=== PATIENT | female | born 1950 | race Two or more races ===

== ENCOUNTER 2017-07-15 18:31 | Inpatient (IN) | payer OTHER ==
[~2017-07-15] VITALS: Ht 165.1 cm; Wt 106.1 kg
[2017-07-15 21:07] LABS: TROPONIN I 0.03 ng/mL (0.00-0.04)
[2017-07-15 21:08] LABS: BASOPHILS % 0.5 % (0.0-2.0); EOSINOPHILS % 4.5 % (0.0-5.0); HEMATOCRIT. 31.5 % (36.0-48.0); HEMOGLOBIN. 10.3 g/dL (12.0-16.0); LYMPHOCYTES % 25.7 % (20.0-50.0); MEAN CORPUSCULAR HEMOGLOBIN 30.1 pg (28.0-32.0); MEAN CORPUSCULAR VOLUME 92.3 fL (81.0-99.0); MEAN PLATELET VOLUME 7.7 fl (7.4-10.4); MONOCYTES % 6.6 % (2.0-8.0); NEUTROPHILS % 62.7 % (40.0-76.0); PLATELET 184 x1000/uL (130-400); RED BLOOD CELL COUNT 3.41 mill/uL (4.2-5.4); RED CELL DISTRIBUTION WIDTH 15.2 % (11.6-14.6)
[2017-07-15] MEDS ORDERED: ENOXAPARIN 40MG/0.4ML SYR SUBCUT SCH (21:45)
[2017-07-15] MEDS ORDERED: HYDROCODONE/ACETAMINOPHEN 5/325MG TABLET PO PRN (23:34)
[2017-07-15] MEDS ORDERED: ACETAMINOPHEN 325MG TABLET PO PRN (23:34)
[2017-07-15] MEDS ORDERED: CLONIDINE 0.1MG TABLET PO PRN (23:35)
[2017-07-16] VITALS (10 sets, daily range): BP systolic 95–114; BP diastolic 30–69
[2017-07-16] MEDS ORDERED: CHOL50003 PO (01:43)
[2017-07-16] MEDS ORDERED: ROSU10TA PO (01:43)
[2017-07-16] MEDS ORDERED: ZINC PO (01:44)
[2017-07-16] MEDS ORDERED: CENTRUM PO (01:44)
[2017-07-16] MEDS ORDERED: CINA30 PO (01:46)
[2017-07-16] MEDS ORDERED: SEVE800T8 PO (01:47)
[2017-07-16] MEDS ORDERED: CAPTOPRIL (01:48)
[2017-07-16] MEDS ORDERED: CAPTOPRIL PO ×2 (01:51→01:53)
[2017-07-16] MEDS ORDERED: ZOLPIDEM TARTRATE 5MG TABLET PO PRN (02:43)
[2017-07-16] MEDS ORDERED: DEXTROSE 50% WATER 50ML SYRINGE IV PRN (03:00)
[2017-07-16] MEDS: SODIUM CHLORIDE 0.45% 1,000 ML IV SCH (05:46)
[2017-07-16] MEDS: BLOOD SUGAR DIAGNOSTIC STRIP TEST SCH ×4 (06:25→20:27)
[2017-07-16 07:27] LABS: CHLORIDE 97 mEq/L (98-107); HDL CHOLESTEROL 48 mg/dL (40-59); LDL CHOLESTEROL 52 mg/dL (5-100); TROPONIN I 0.03 ng/mL (0.00-0.04)
[2017-07-16 07:30] LABS: BASOPHILS % 0.6 % (0.0-2.0); EOSINOPHILS % 5.3 % (0.0-5.0); HEMATOCRIT. 28.1 % (36.0-48.0); HEMOGLOBIN. 9.3 g/dL (12.0-16.0); LYMPHOCYTES % 29.5 % (20.0-50.0); MEAN CORPUSCULAR HEMOGLOBIN 30.7 pg (28.0-32.0); MEAN CORPUSCULAR VOLUME 92.9 fL (81.0-99.0); MONOCYTES % 7.4 % (2.0-8.0); NEUTROPHILS % 57.2 % (40.0-76.0); PLATELET 169 x1000/uL (130-400); RED BLOOD CELL COUNT 3.02 mill/uL (4.2-5.4); RED CELL DISTRIBUTION WIDTH 14.9 % (11.6-14.6)
[2017-07-16 07:35] LABS: CARBON DIOXIDE 32 mEq/L (21-32)
[2017-07-16] MEDS: INSULIN LISPRO 100 UNITS/ML SUBCUT SCH ×4 (08:11→20:28)
[2017-07-16] MEDS ORDERED: ENOXAPARIN 30MG/0.3ML SYR SUBCUT SCH (09:00)
[2017-07-16] MEDS ORDERED: PNEUMOCOCCAL 23-VAL P-SAC VAC 0.5 ML IM ONE (12:00)
[2017-07-16 15:50] LABS: PARTIAL THROMBOPLASTIN TIME 30.5 sec (23.4-31.0); PROTHROMBIN TIME 10.8 sec (9.4-11.6)
[2017-07-17] VITALS (7 sets, daily range): BP systolic 100–155; BP diastolic 45–99
[2017-07-17 05:16] LABS: BASOPHILS % 0.8 % (0.0-2.0); EOSINOPHILS % 5.2 % (0.0-5.0); HEMATOCRIT. 30.3 % (36.0-48.0); LYMPHOCYTES % 36.2 % (20.0-50.0); MEAN CORPUSCULAR HEMOGLOBIN 30.5 pg (28.0-32.0); MEAN CORPUSCULAR VOLUME 92.5 fL (81.0-99.0); MEAN PLATELET VOLUME 7.8 fl (7.4-10.4); MONOCYTES % 7.4 % (2.0-8.0); NEUTROPHILS % 50.4 % (40.0-76.0); PLATELET 179 x1000/uL (130-400); RED BLOOD CELL COUNT 3.27 mill/uL (4.2-5.4)
[2017-07-17] MEDS: SODIUM CHLORIDE 0.45% 1,000 ML IV SCH (06:25)
[2017-07-17] MEDS ORDERED: SODIUM BICARBONATE 4% (2.4MEQ) 5ML VIAL IV ONE (07:17)
[2017-07-17] MEDS ORDERED: LIDOCAINE HCL 1% 20ML VIAL (Pyxis) INJ ONE (07:17)
[2017-07-17] MEDS: BLOOD SUGAR DIAGNOSTIC STRIP TEST SCH ×4 (07:30→20:59)
[2017-07-17] MEDS ORDERED: CEFAZOLIN 1000MG PREMIX 50 ML IV ONE (07:46)
[2017-07-17] MEDS: INSULIN LISPRO 100 UNITS/ML SUBCUT SCH ×4 (08:00→21:00)
[2017-07-17] MEDS ORDERED: REGADENOSON 0.4 MG/5 ML IV NR (09:00)
[2017-07-17] MEDS ORDERED: REGADENOSON 0.4 MG/5 ML IV ONE (11:40)
[2017-07-17] MEDS: ENOXAPARIN 40MG/0.4ML SYR SUBCUT SCH (15:44)
[2017-07-17] MEDS: EPOETIN ALFA 10000UNITS/ML VIAL SUBCUT SCH (21:01)
[2017-07-18] VITALS: BP 95/56
[2017-07-18] MEDS: SODIUM CHLORIDE 0.45% 1,000 ML IV SCH (05:20)
[2017-07-18 06:32] LABS: BASOPHILS % 0.8 % (0.0-2.0); EOSINOPHILS % 5.9 % (0.0-5.0); HEMATOCRIT. 25.4 % (36.0-48.0); HEMOGLOBIN. 8.2 g/dL (12.0-16.0); MEAN CORPUSCULAR HEMOGLOBIN 30.2 pg (28.0-32.0); MEAN PLATELET VOLUME 8.1 fl (7.4-10.4); MONOCYTES % 8.9 % (2.0-8.0); NEUTROPHILS % 53.4 % (40.0-76.0); PLATELET 159 x1000/uL (130-400); RED BLOOD CELL COUNT 2.73 mill/uL (4.2-5.4); RED CELL DISTRIBUTION WIDTH 15.1 % (11.6-14.6)
[2017-07-18] MEDS: BLOOD SUGAR DIAGNOSTIC STRIP TEST SCH ×4 (07:30→20:50)
[2017-07-18 08:00] VITALS: BP 101/45
[2017-07-18] MEDS: INSULIN LISPRO 100 UNITS/ML SUBCUT SCH ×4 (08:00→20:50)
[2017-07-18] MEDS: ENOXAPARIN 40MG/0.4ML SYR SUBCUT SCH (08:19)
[2017-07-18 12:00] VITALS: BP 110/45
[2017-07-18 12:18] LABS: HEMATOCRIT 25.8 % (36.0-48.0); HEMOGLOBIN 8.4 g/dL (12.0-16.0)
[2017-07-18 16:00] VITALS: BP 99/60
[2017-07-18 20:46] VITALS: BP 101/29
[2017-07-19] VITALS (7 sets, daily range): BP systolic 96–107; BP diastolic 37–56
[2017-07-19] MEDS: BLOOD SUGAR DIAGNOSTIC STRIP TEST SCH ×4 (07:56→21:00)
[2017-07-19] MEDS: INSULIN LISPRO 100 UNITS/ML SUBCUT SCH ×4 (08:00→21:59)
[2017-07-19] MEDS: SODIUM CHLORIDE 0.45% 1,000 ML IV SCH ×2 (08:00→17:42)
[2017-07-19] MEDS: ENOXAPARIN 40MG/0.4ML SYR SUBCUT SCH (08:46)
[2017-07-19 10:30] LABS: BASOPHILS % 0.7 % (0.0-2.0); HEMATOCRIT. 26.5 % (36.0-48.0); HEMOGLOBIN. 8.7 g/dL (12.0-16.0); LYMPHOCYTES % 30.1 % (20.0-50.0); MEAN CORPUSCULAR HEMOGLOBIN 30.1 pg (28.0-32.0); MEAN CORPUSCULAR VOLUME 92.1 fL (81.0-99.0); MEAN PLATELET VOLUME 7.9 fl (7.4-10.4); MONOCYTES % 7.6 % (2.0-8.0); NEUTROPHILS % 55.6 % (40.0-76.0); PLATELET 163 x1000/uL (130-400); RED BLOOD CELL COUNT 2.88 mill/uL (4.2-5.4); RED CELL DISTRIBUTION WIDTH 15.2 % (11.6-14.6)
[2017-07-20] VITALS (9 sets, daily range): BP systolic 106–120; BP diastolic 44–73
[2017-07-20] MEDS: SODIUM CHLORIDE 0.45% 1,000 ML IV SCH (05:45)
[2017-07-20] MEDS: BLOOD SUGAR DIAGNOSTIC STRIP TEST SCH ×4 (06:46→21:00)
[2017-07-20] MEDS: INSULIN LISPRO 100 UNITS/ML SUBCUT SCH ×4 (08:00→21:43)
[2017-07-20] MEDS: ENOXAPARIN 40MG/0.4ML SYR SUBCUT SCH (10:20)
[2017-07-20 18:40] LABS: BASOPHILS % 0.5 % (0.0-2.0); EOSINOPHILS % 6.9 % (0.0-5.0); HEMATOCRIT. 24.4 % (36.0-48.0); LYMPHOCYTES % 33.8 % (20.0-50.0); MEAN CORPUSCULAR HEMOGLOBIN 30.3 pg (28.0-32.0); MEAN CORPUSCULAR VOLUME 92.3 fL (81.0-99.0); MEAN PLATELET VOLUME 8.2 fl (7.4-10.4); MONOCYTES % 7.7 % (2.0-8.0); NEUTROPHILS % 51.1 % (40.0-76.0); PLATELET 145 x1000/uL (130-400); RED BLOOD CELL COUNT 2.64 mill/uL (4.2-5.4); RED CELL DISTRIBUTION WIDTH 15.3 % (11.6-14.6)
[2017-07-20] MEDS: EPOETIN ALFA 10000UNITS/ML VIAL SUBCUT SCH (20:57)
[2017-07-21] VITALS (7 sets, daily range): BP systolic 99–108; BP diastolic 44–58
[2017-07-21 06:51] LABS: BASOPHILS % 0.7 % (0.0-2.0); EOSINOPHILS % 6.1 % (0.0-5.0); HEMOGLOBIN. 8.3 g/dL (12.0-16.0); MEAN CORPUSCULAR HEMOGLOBIN 31.1 pg (28.0-32.0); MEAN CORPUSCULAR VOLUME 93.2 fL (81.0-99.0); MEAN PLATELET VOLUME 8.6 fl (7.4-10.4); MONOCYTES % 8.8 % (2.0-8.0); NEUTROPHILS % 51.4 % (40.0-76.0); PLATELET 152 x1000/uL (130-400); RED BLOOD CELL COUNT 2.68 mill/uL (4.2-5.4); RED CELL DISTRIBUTION WIDTH 14.9 % (11.6-14.6)
[2017-07-21] MEDS: INSULIN LISPRO 100 UNITS/ML SUBCUT SCH ×4 (08:00→21:22)
[2017-07-21] MEDS: BLOOD SUGAR DIAGNOSTIC STRIP TEST SCH ×4 (08:22→21:00)
[2017-07-22] VITALS (7 sets, daily range): BP systolic 89–121; BP diastolic 38–72
[2017-07-22] MEDS: BLOOD SUGAR DIAGNOSTIC STRIP TEST SCH ×4 (07:51→20:59)
[2017-07-22] MEDS: INSULIN LISPRO 100 UNITS/ML SUBCUT SCH ×4 (08:00→21:00)
[2017-07-22 08:55] LABS: BASOPHILS % 0.9 % (0.0-2.0); EOSINOPHILS % 5.6 % (0.0-5.0); HEMATOCRIT. 26.7 % (36.0-48.0); HEMOGLOBIN. 8.6 g/dL (12.0-16.0); LYMPHOCYTES % 31.7 % (20.0-50.0); MEAN CORPUSCULAR HEMOGLOBIN 29.6 pg (28.0-32.0); MEAN CORPUSCULAR VOLUME 91.5 fL (81.0-99.0); MEAN PLATELET VOLUME 7.8 fl (7.4-10.4); MONOCYTES % 6.9 % (2.0-8.0); NEUTROPHILS % 54.9 % (40.0-76.0); PLATELET 177 x1000/uL (130-400); RED BLOOD CELL COUNT 2.92 mill/uL (4.2-5.4); RED CELL DISTRIBUTION WIDTH 15.1 % (11.6-14.6)
[2017-07-22] MEDS ORDERED: HEPARIN SODIUM 1,000 UNIT/1ML VIAL IV NR (09:30)
[2017-07-22] MEDS: EPOETIN ALFA 10000UNITS/ML VIAL SUBCUT SCH (20:59)
[2017-07-23] VITALS (8 sets, daily range): BP systolic 91–137; BP diastolic 32–65
[2017-07-23 06:14] LABS: BASOPHILS % 0.3 % (0.0-2.0); EOSINOPHILS % 3.3 % (0.0-5.0); HEMATOCRIT. 27.3 % (36.0-48.0); MEAN CORPUSCULAR HEMOGLOBIN 30.3 pg (28.0-32.0); MEAN CORPUSCULAR VOLUME 92.2 fL (81.0-99.0); MEAN PLATELET VOLUME 8.2 fl (7.4-10.4); MONOCYTES % 0.7 % (2.0-8.0); NEUTROPHILS % 87.7 % (40.0-76.0); PLATELET 144 x1000/uL (130-400); RED BLOOD CELL COUNT 2.96 mill/uL (4.2-5.4); RED CELL DISTRIBUTION WIDTH 15.5 % (11.6-14.6)
[2017-07-23] MEDS: BLOOD SUGAR DIAGNOSTIC STRIP TEST SCH ×4 (07:00→21:13)
[2017-07-23] MEDS: INSULIN LISPRO 100 UNITS/ML SUBCUT SCH ×4 (09:01→21:00)
[2017-07-24 00:04] VITALS: BP 106/23
[2017-07-24 05:12] VITALS: BP 88/20
[2017-07-24] MEDS: BLOOD SUGAR DIAGNOSTIC STRIP TEST SCH ×4 (06:45→21:23)
[2017-07-24] MEDS: INSULIN LISPRO 100 UNITS/ML SUBCUT SCH ×4 (07:50→21:00)
[2017-07-24 08:28] VITALS: BP 99/29
[2017-07-24 10:17] LABS: HEMATOCRIT. 24.6 % (36.0-48.0); HEMOGLOBIN. 8.1 g/dL (12.0-16.0); MEAN CORPUSCULAR HEMOGLOBIN 30.1 pg (28.0-32.0); MEAN CORPUSCULAR VOLUME 91.5 fL (81.0-99.0); RED BLOOD CELL COUNT 2.69 mill/uL (4.2-5.4); RED CELL DISTRIBUTION WIDTH 15.2 % (11.6-14.6)
[2017-07-24 12:00] VITALS: BP 116/54
[2017-07-24] MEDS: ONDANSETRON HCL 4MG/2ML VIAL IV PRN (12:54)
[2017-07-24 16:25] VITALS: BP 101/67
[2017-07-24 20:00] VITALS: BP_SYST 92; BP_SYST 96; BP_DIAS 30; BP_DIAS 36
[2017-07-24] MEDS ORDERED: SODIUM CHLORIDE 0.9% 250 ML IV ONE ×2 (21:30)
[2017-07-25] VITALS (11 sets, daily range): BP systolic 89–124; BP diastolic 22–55
[2017-07-25] MEDS ORDERED: ALBUMIN HUMAN 25GM/100ML (25%) IV SCH (02:00)
[2017-07-25] MEDS: BLOOD SUGAR DIAGNOSTIC STRIP TEST SCH ×4 (06:50→21:26)
[2017-07-25] MEDS: INSULIN LISPRO 100 UNITS/ML SUBCUT SCH ×4 (07:50→21:00)
[2017-07-25 08:05] LABS: HEMATOCRIT. 25.7 % (36.0-48.0); HEMOGLOBIN. 8.3 g/dL (12.0-16.0); MEAN CORPUSCULAR VOLUME 92.6 fL (81.0-99.0); MEAN PLATELET VOLUME 8.8 fl (7.4-10.4); PLATELET 95 x1000/uL (130-400); RED BLOOD CELL COUNT 2.78 mill/uL (4.2-5.4); RED CELL DISTRIBUTION WIDTH 15.4 % (11.6-14.6)
[2017-07-25] MEDS ORDERED: VANCOMYCIN 1500MG in DEXTROSE 5% WATER 250ML IV NR (10:00)
[2017-07-25] MEDS: PIPERACILLIN/TAZ 2.25G PREMIX 50 ML IV SCH ×2 (10:47→17:19)
[2017-07-25 13:11] LABS: MEAN PLATELET VOLUME 8.5 fl (7.4-10.4); PLATELET 131 x1000/uL (130-400); PLATELET ESTIMATE NORMAL
[2017-07-25] MEDS: MIDODRINE HCL 5MG TABLET PO SCH ×2 (13:18→17:20)
[2017-07-25 22:51] LABS: PLATELET ESTIMATE DECREASED
[2017-07-26] VITALS (12 sets, daily range): BP systolic 89–119; BP diastolic 32–61
[2017-07-26] MEDS: PIPERACILLIN/TAZ 2.25G PREMIX 50 ML IV SCH ×2 (02:31→09:19)
[2017-07-26 06:38] LABS: BASOPHILS % 0.5 % (0.0-2.0); EOSINOPHILS % 2.5 % (0.0-5.0); HEMOGLOBIN. 7.9 g/dL (12.0-16.0); LYMPHOCYTES % 14.4 % (20.0-50.0); MEAN CORPUSCULAR HEMOGLOBIN 29.9 pg (28.0-32.0); MEAN CORPUSCULAR VOLUME 91.1 fL (81.0-99.0); MEAN PLATELET VOLUME 8.7 fl (7.4-10.4); MONOCYTES % 8.5 % (2.0-8.0); NEUTROPHILS % 74.1 % (40.0-76.0); PLATELET 85 x1000/uL (130-400); RED BLOOD CELL COUNT 2.63 mill/uL (4.2-5.4); RED CELL DISTRIBUTION WIDTH 15.2 % (11.6-14.6)
[2017-07-26] MEDS: BLOOD SUGAR DIAGNOSTIC STRIP TEST SCH ×4 (07:05→21:12)
[2017-07-26] MEDS: INSULIN LISPRO 100 UNITS/ML SUBCUT SCH ×4 (07:05→21:00)
[2017-07-26] MEDS: MIDODRINE HCL 5MG TABLET PO SCH ×3 (09:19→17:11)
[2017-07-26] MEDS ORDERED: VANCOMYCIN 1500MG in DEXTROSE 5% WATER 250ML IV NR (14:00)
[2017-07-26] MEDS: CEFTRIAXONE 1 G PREMIX 50 ML IV SCH (17:03)
[2017-07-27] VITALS (28 sets, daily range): BP systolic 70–132; BP diastolic 32–67
[2017-07-27 06:54] LABS: BASOPHILS % 0.4 % (0.0-2.0); EOSINOPHILS % 4.7 % (0.0-5.0); HEMATOCRIT. 23.4 % (36.0-48.0); HEMOGLOBIN. 7.7 g/dL (12.0-16.0); LYMPHOCYTES % 23.8 % (20.0-50.0); MEAN CORPUSCULAR HEMOGLOBIN 29.7 pg (28.0-32.0); MEAN CORPUSCULAR VOLUME 90.1 fL (81.0-99.0); MONOCYTES % 13.9 % (2.0-8.0); NEUTROPHILS % 57.2 % (40.0-76.0); PLATELET 89 x1000/uL (130-400); RED CELL DISTRIBUTION WIDTH 15.5 % (11.6-14.6)
[2017-07-27] MEDS: INSULIN LISPRO 100 UNITS/ML SUBCUT SCH ×4 (08:00→21:00)
[2017-07-27] MEDS: BLOOD SUGAR DIAGNOSTIC STRIP TEST SCH ×4 (08:03→21:00)
[2017-07-27] MEDS: MIDODRINE HCL 5MG TABLET PO SCH ×3 (08:04→18:00)
[2017-07-27] MEDS ORDERED: SODIUM BICARBONATE 4% (2.4MEQ) 5ML VIAL IV ONE (08:21)
[2017-07-27] MEDS ORDERED: LIDOCAINE HCL 1% 20ML VIAL (Pyxis) INJ ONE (08:21)
[2017-07-27] MEDS ORDERED: ACETAMINOPHEN 650MG SUPP PR PRN (10:45)
[2017-07-27] MEDS ORDERED: HETASTARCH/NORMAL SALINE 500 ML PLAST..BAG IV ONE (16:15)
[2017-07-27] MEDS ORDERED: NOREPINEPHRINE 4 MG in DEXT 5% WATER 246 ML IV PRN ×2 (16:15→18:00)
[2017-07-27] MEDS ORDERED: HETASTARCH/NORMAL SALINE 250 ML IV SCH (16:30)
[2017-07-27] MEDS: CEFTRIAXONE 1 G PREMIX 50 ML IV SCH ×2 (17:30→18:00)
[2017-07-27 21:14] LABS: HEMATOCRIT 29.2 % (36.0-48.0); HEMOGLOBIN 9.7 g/dL (12.0-16.0)
[2017-07-28] VITALS (46 sets, daily range): BP systolic 74–135; BP diastolic 12–89
[2017-07-28] MEDS: BLOOD SUGAR DIAGNOSTIC STRIP TEST SCH ×4 (06:30→20:38)
[2017-07-28] MEDS: INSULIN LISPRO 100 UNITS/ML SUBCUT SCH ×4 (06:31→20:38)
[2017-07-28] MEDS: MIDODRINE HCL 5MG TABLET PO SCH ×3 (08:26→17:18)
[2017-07-28 09:18] LABS: BASOPHILS % 0.4 % (0.0-2.0); EOSINOPHILS % 2.7 % (0.0-5.0); LYMPHOCYTES % 19.6 % (20.0-50.0); MEAN CORPUSCULAR HEMOGLOBIN 29.6 pg (28.0-32.0); MEAN CORPUSCULAR VOLUME 88.7 fL (81.0-99.0); MEAN PLATELET VOLUME 8.9 fl (7.4-10.4); MONOCYTES % 12.5 % (2.0-8.0); NEUTROPHILS % 64.8 % (40.0-76.0); PLATELET 85 x1000/uL (130-400); RED BLOOD CELL COUNT 3.15 mill/uL (4.2-5.4)
[2017-07-28 09:28] LABS: HEMOGLOBIN. 9.3 g/dL (12.0-16.0)
[2017-07-28] MEDS: CEFTRIAXONE 1 G PREMIX 50 ML IV SCH ×2 (17:23→17:24)
[2017-07-29] VITALS (24 sets, daily range): BP systolic 92–130; BP diastolic 30–66
[2017-07-29] MEDS: BLOOD SUGAR DIAGNOSTIC STRIP TEST SCH ×4 (07:44→20:51)
[2017-07-29] MEDS: INSULIN LISPRO 100 UNITS/ML SUBCUT SCH ×4 (08:00→20:52)
[2017-07-29] MEDS: MIDODRINE HCL 5MG TABLET PO SCH ×3 (08:54→17:51)
[2017-07-29 09:47] LABS: BASOPHILS % 1.1 % (0.0-2.0); EOSINOPHILS % 4.2 % (0.0-5.0); HEMATOCRIT. 26.7 % (36.0-48.0); LYMPHOCYTES % 21.6 % (20.0-50.0); MEAN CORPUSCULAR HEMOGLOBIN 29.3 pg (28.0-32.0); MEAN CORPUSCULAR VOLUME 87.1 fL (81.0-99.0); MEAN PLATELET VOLUME 8.5 fl (7.4-10.4); MONOCYTES % 11.3 % (2.0-8.0); NEUTROPHILS % 61.8 % (40.0-76.0); PLATELET 86 x1000/uL (130-400); RED BLOOD CELL COUNT 3.06 mill/uL (4.2-5.4); RED CELL DISTRIBUTION WIDTH 15.9 % (11.6-14.6)
[2017-07-29] MEDS ORDERED: LIDOCAINE HCL 1% 20ML VIAL (Pyxis) INJ ONE (10:52)
[2017-07-29] MEDS ORDERED: SODIUM BICARBONATE 4% (2.4MEQ) 5ML VIAL IV ONE (10:53)
[2017-07-29] MEDS ORDERED: HEPARIN 1000 UNITS/ML 10ML ONE (10:53)
[2017-07-29] MEDS ORDERED: FENTANYL CITRATE/PF 50MCG/ML 2ML VIAL ONE (11:44)
[2017-07-29] MEDS ORDERED: HEPARIN SODIUM 1,000 UNIT/1ML VIAL IV NR (16:45)
[2017-07-29] MEDS: CEFTRIAXONE 1 G PREMIX 50 ML IV SCH (17:51)
[2017-07-30] VITALS (7 sets, daily range): BP systolic 95–132; BP diastolic 28–58
[2017-07-30] MEDS: BLOOD SUGAR DIAGNOSTIC STRIP TEST SCH ×5 (07:20→21:00)
[2017-07-30] MEDS: INSULIN LISPRO 100 UNITS/ML SUBCUT SCH ×4 (08:00→21:00)
[2017-07-30] MEDS: MIDODRINE HCL 5MG TABLET PO SCH ×3 (08:33→17:00)
[2017-07-30 11:05] LABS: HEMATOCRIT. 26.6 % (36.0-48.0); HEMOGLOBIN. 8.9 g/dL (12.0-16.0); MEAN CORPUSCULAR HEMOGLOBIN 29.6 pg (28.0-32.0); MEAN CORPUSCULAR VOLUME 88.3 fL (81.0-99.0); MEAN PLATELET VOLUME 8.6 fl (7.4-10.4); PLATELET 102 x1000/uL (130-400); RED BLOOD CELL COUNT 3.01 mill/uL (4.2-5.4); RED CELL DISTRIBUTION WIDTH 15.9 % (11.6-14.6)
[2017-07-30 12:30] LABS: PLATELET ESTIMATE SLIGHTLY DECREASED
[2017-07-30] MEDS: CEFTRIAXONE 1 G PREMIX 50 ML IV SCH (17:43)
[2017-07-31] VITALS (10 sets, daily range): BP systolic 102–152; BP diastolic 37–63
[2017-07-31] MEDS: ONDANSETRON HCL 4MG/2ML VIAL IV PRN ×2 (06:47→14:15)
[2017-07-31] MEDS: BLOOD SUGAR DIAGNOSTIC STRIP TEST SCH ×4 (07:30→20:58)
[2017-07-31] MEDS: INSULIN LISPRO 100 UNITS/ML SUBCUT SCH ×4 (08:00→21:00)
[2017-07-31] MEDS: MIDODRINE HCL 5MG TABLET PO SCH ×3 (08:41→17:00)
[2017-07-31 09:38] LABS: HEMATOCRIT. 29.1 % (36.0-48.0); HEMOGLOBIN. 9.8 g/dL (12.0-16.0); MEAN CORPUSCULAR HEMOGLOBIN 29.9 pg (28.0-32.0); MEAN CORPUSCULAR VOLUME 88.9 fL (81.0-99.0); MEAN PLATELET VOLUME 8.3 fl (7.4-10.4); PLATELET 138 x1000/uL (130-400); RED BLOOD CELL COUNT 3.27 mill/uL (4.2-5.4); RED CELL DISTRIBUTION WIDTH 16.4 % (11.6-14.6)
[2017-07-31] MEDS: CEFTRIAXONE 1 G PREMIX 50 ML IV SCH (17:51)
[2017-07-31 19:33] LABS: ATYPICAL LYMPHOCYTES 2
[2017-07-31 19:34] LABS: PLATELET ESTIMATE NORMAL
[2017-08-01] VITALS (12 sets, daily range): BP systolic 101–134; BP diastolic 25–61
[2017-08-01] MEDS: ONDANSETRON HCL 4MG/2ML VIAL IV PRN (03:47)
[2017-08-01] MEDS: INSULIN LISPRO 100 UNITS/ML SUBCUT SCH ×4 (08:00→21:00)
[2017-08-01] MEDS: BLOOD SUGAR DIAGNOSTIC STRIP TEST SCH ×4 (08:04→21:00)
[2017-08-01] MEDS: MIDODRINE HCL 5MG TABLET PO SCH ×4 (08:59→17:37)
[2017-08-01] MEDS: CEFTRIAXONE 1 G PREMIX 50 ML IV SCH (17:37)
[2017-08-02] VITALS (16 sets, daily range): BP systolic 82–134; BP diastolic 30–65
[2017-08-02] MEDS: BLOOD SUGAR DIAGNOSTIC STRIP TEST SCH ×4 (07:30→20:40)
[2017-08-02] MEDS: INSULIN LISPRO 100 UNITS/ML SUBCUT SCH ×4 (08:00→20:40)
[2017-08-02] MEDS: MIDODRINE HCL 5MG TABLET PO SCH ×3 (09:46→17:56)
[2017-08-02] MEDS: CEFTRIAXONE 1 G PREMIX 50 ML IV SCH (19:04)
[2017-08-03] VITALS (9 sets, daily range): BP systolic 100–145; BP diastolic 41–97
[2017-08-03 06:56] LABS: HEMATOCRIT. 24.5 % (36.0-48.0); MEAN CORPUSCULAR HEMOGLOBIN 29.3 pg (28.0-32.0); MEAN CORPUSCULAR VOLUME 88.9 fL (81.0-99.0); MEAN PLATELET VOLUME 7.5 fl (7.4-10.4); PLATELET 185 x1000/uL (130-400); RED BLOOD CELL COUNT 2.76 mill/uL (4.2-5.4)
[2017-08-03] MEDS: BLOOD SUGAR DIAGNOSTIC STRIP TEST SCH ×4 (07:23→20:42)
[2017-08-03] MEDS: INSULIN LISPRO 100 UNITS/ML SUBCUT SCH ×4 (07:57→20:41)
[2017-08-03 08:12] LABS: HEMOGLOBIN. 8.1 g/dL (12.0-16.0)
[2017-08-03] MEDS: MIDODRINE HCL 5MG TABLET PO SCH ×3 (08:43→17:00)
[2017-08-03 10:41] LABS: HEMATOCRIT 26.5 % (36.0-48.0); HEMOGLOBIN 8.6 g/dL (12.0-16.0)
[2017-08-03 13:07] LABS: PLATELET ESTIMATE NORMAL
[2017-08-03] MEDS ORDERED: GENTAMICIN 80MG PREMIX 100 ML IV SCH (18:00)
[2017-08-03] MEDS: EPOETIN ALFA 10000UNITS/ML VIAL SUBCUT SCH (20:46)
[2017-08-04] VITALS (8 sets, daily range): BP systolic 106–131; BP diastolic 38–61
[2017-08-04 07:14] LABS: BASOPHILS % 0.4 % (0.0-2.0); EOSINOPHILS % 2.6 % (0.0-5.0); HEMATOCRIT. 24.8 % (36.0-48.0); LYMPHOCYTES % 22.1 % (20.0-50.0); MEAN CORPUSCULAR VOLUME 92.5 fL (81.0-99.0); MEAN PLATELET VOLUME 7.8 fl (7.4-10.4); MONOCYTES % 11.2 % (2.0-8.0); NEUTROPHILS % 63.7 % (40.0-76.0); PLATELET 172 x1000/uL (130-400); RED BLOOD CELL COUNT 2.68 mill/uL (4.2-5.4); RED CELL DISTRIBUTION WIDTH 16.2 % (11.6-14.6)
[2017-08-04] MEDS: BLOOD SUGAR DIAGNOSTIC STRIP TEST SCH ×4 (07:20→21:00)
[2017-08-04] MEDS: INSULIN LISPRO 100 UNITS/ML SUBCUT SCH ×3 (08:00→17:23)
[2017-08-04] MEDS: MIDODRINE HCL 5MG TABLET PO SCH ×3 (08:42→16:07)
[2017-08-04] MEDS ORDERED: GENTAMICIN 80MG PREMIX 100 ML IV NR (14:00)
[2017-08-05] VITALS (8 sets, daily range): BP systolic 80–127; BP diastolic 32–74
[2017-08-05] MEDS ORDERED: ALTEPLASE 100MG/VIAL IV ONE (07:30)
[2017-08-05] MEDS ORDERED: ALTEPLASE 2MG/VIAL ITC SCH (07:45)
[2017-08-05] MEDS: BLOOD SUGAR DIAGNOSTIC STRIP TEST SCH ×4 (07:50→21:00)
[2017-08-05] MEDS: INSULIN LISPRO 100 UNITS/ML SUBCUT SCH ×4 (08:00→21:00)
[2017-08-05 08:41] LABS: HEMATOCRIT. 23.7 % (36.0-48.0); HEMOGLOBIN. 7.6 g/dL (12.0-16.0); MEAN CORPUSCULAR HEMOGLOBIN 30.1 pg (28.0-32.0); MEAN CORPUSCULAR VOLUME 93.5 fL (81.0-99.0); MEAN PLATELET VOLUME 7.7 fl (7.4-10.4); PLATELET 199 x1000/uL (130-400); RED BLOOD CELL COUNT 2.54 mill/uL (4.2-5.4); RED CELL DISTRIBUTION WIDTH 16.3 % (11.6-14.6)
[2017-08-05] MEDS: MIDODRINE HCL 5MG TABLET PO SCH ×3 (08:49→17:34)
[2017-08-05 14:42] LABS: PLATELET ESTIMATE NORMAL
[2017-08-05] MEDS ORDERED: GENTAMICIN 80MG PREMIX 100 ML IV NR (21:00)
[2017-08-06] VITALS (16 sets, daily range): BP systolic 83–129; BP diastolic 25–61
[2017-08-06] MEDS: EPOETIN ALFA 10000UNITS/ML VIAL SUBCUT SCH (06:52)
[2017-08-06] MEDS: BLOOD SUGAR DIAGNOSTIC STRIP TEST SCH ×5 (07:30→21:00)
[2017-08-06 07:31] LABS: HEMATOCRIT. 23.8 % (36.0-48.0); HEMOGLOBIN. 7.6 g/dL (12.0-16.0); MEAN CORPUSCULAR HEMOGLOBIN 29.5 pg (28.0-32.0); MEAN CORPUSCULAR VOLUME 92.2 fL (81.0-99.0); MEAN PLATELET VOLUME 7.6 fl (7.4-10.4); PLATELET 207 x1000/uL (130-400); RED BLOOD CELL COUNT 2.58 mill/uL (4.2-5.4); RED CELL DISTRIBUTION WIDTH 15.9 % (11.6-14.6)
[2017-08-06] MEDS: INSULIN LISPRO 100 UNITS/ML SUBCUT SCH ×4 (08:00→21:00)
[2017-08-06] MEDS ORDERED: GENTAMICIN 80MG PREMIX 100 ML IV NR ×2 (09:00→20:00)
[2017-08-06] MEDS: MIDODRINE HCL 5MG TABLET PO SCH ×3 (12:21→20:37)
[2017-08-06 12:37] LABS: INR 1.2; PARTIAL THROMBOPLASTIN TIME 27.8 sec (23.4-31.0); PROTHROMBIN TIME 12.3 sec (9.4-11.6)
[2017-08-06] MEDS ORDERED: SODIUM BICARBONATE 4% (2.4MEQ) 5ML VIAL IV ONE (14:54)
[2017-08-06] MEDS ORDERED: LIDOCAINE HCL 1% 20ML VIAL (Pyxis) INJ ONE (14:54)
[2017-08-06] MEDS ORDERED: FENTANYL CITRATE/PF 50MCG/ML 2ML VIAL ONE (15:12)
[2017-08-06] MEDS ORDERED: MIDAZOLAM HCL 2 MG/2 ML VIAL ONE (15:12)
[2017-08-06 20:05] LABS: PLATELET ESTIMATE NORMAL
[2017-08-07] VITALS (9 sets, daily range): BP systolic 100–124; BP diastolic 34–65
[2017-08-07] MEDS: BLOOD SUGAR DIAGNOSTIC STRIP TEST SCH ×4 (07:30→21:45)
[2017-08-07] MEDS: INSULIN LISPRO 100 UNITS/ML SUBCUT SCH ×4 (08:00→21:00)
[2017-08-07] MEDS: MIDODRINE HCL 5MG TABLET PO SCH ×3 (09:50→16:53)
[2017-08-07 09:54] LABS: HEMATOCRIT. 32.1 % (36.0-48.0); MEAN CORPUSCULAR HEMOGLOBIN 29.3 pg (28.0-32.0); MEAN CORPUSCULAR VOLUME 89.2 fL (81.0-99.0); PLATELET 227 x1000/uL (130-400); RED CELL DISTRIBUTION WIDTH 15.1 % (11.6-14.6)
[2017-08-07 10:02] LABS: HEMOGLOBIN. 10.5 g/dL (12.0-16.0)
[2017-08-07 16:37] LABS: PLATELET ESTIMATE NORMAL
[2017-08-07] MEDS: EPOETIN ALFA 10000UNITS/ML VIAL SUBCUT SCH (21:43)
[2017-08-08] VITALS (12 sets, daily range): BP systolic 97–144; BP diastolic 30–83
[2017-08-08] MEDS: BLOOD SUGAR DIAGNOSTIC STRIP TEST SCH ×4 (07:30→21:00)
[2017-08-08 07:45] LABS: MEAN CORPUSCULAR VOLUME 88.7 fL (81.0-99.0); MEAN PLATELET VOLUME 7.2 fl (7.4-10.4); PLATELET 233 x1000/uL (130-400); RED BLOOD CELL COUNT 2.99 mill/uL (4.2-5.4); RED CELL DISTRIBUTION WIDTH 14.9 % (11.6-14.6)
[2017-08-08 07:46] LABS: HEMATOCRIT. 26.5 % (36.0-48.0); NEUTROPHILS % 70.1 % (40.0-76.0)
[2017-08-08 07:48] LABS: BASOPHILS % 0.5 % (0.0-2.0); EOSINOPHILS % 1.6 % (0.0-5.0); MONOCYTES % 7.8 % (2.0-8.0)
[2017-08-08] MEDS: INSULIN LISPRO 100 UNITS/ML SUBCUT SCH ×4 (08:00→21:00)
[2017-08-08] MEDS: MIDODRINE HCL 5MG TABLET PO SCH ×3 (08:41→17:21)
[2017-08-09] VITALS: BP 120/24
[2017-08-09 04:00] VITALS: BP 117/63
[2017-08-09] MEDS: BLOOD SUGAR DIAGNOSTIC STRIP TEST SCH ×4 (07:35→21:00)
[2017-08-09 08:00] VITALS: BP 103/59
[2017-08-09] MEDS: INSULIN LISPRO 100 UNITS/ML SUBCUT SCH ×4 (08:00→21:00)
[2017-08-09] MEDS: MIDODRINE HCL 5MG TABLET PO SCH ×3 (08:02→17:27)
[2017-08-09 11:56] VITALS: BP 109/38
[2017-08-09 16:00] VITALS: BP 120/40
[2017-08-09 20:00] VITALS: BP 100/70
[2017-08-10] VITALS: BP 101/67
[2017-08-10 04:00] VITALS: BP 110/75
[2017-08-10 05:55] LABS: BASOPHILS % 0.7 % (0.0-2.0); EOSINOPHILS % 0.9 % (0.0-5.0); HEMATOCRIT. 26.3 % (36.0-48.0); HEMOGLOBIN. 8.8 g/dL (12.0-16.0); LYMPHOCYTES % 25.9 % (20.0-50.0); MEAN CORPUSCULAR HEMOGLOBIN 29.7 pg (28.0-32.0); MEAN CORPUSCULAR VOLUME 88.9 fL (81.0-99.0); MEAN PLATELET VOLUME 6.7 fl (7.4-10.4); MONOCYTES % 8.8 % (2.0-8.0); NEUTROPHILS % 63.7 % (40.0-76.0); PLATELET 274 x1000/uL (130-400); RED BLOOD CELL COUNT 2.96 mill/uL (4.2-5.4); RED CELL DISTRIBUTION WIDTH 15.2 % (11.6-14.6)
[2017-08-10] MEDS: BLOOD SUGAR DIAGNOSTIC STRIP TEST SCH ×4 (06:29→20:33)
[2017-08-10] MEDS: INSULIN LISPRO 100 UNITS/ML SUBCUT SCH ×4 (07:50→20:33)
[2017-08-10 07:55] LABS: PHOSPHORUS 4.1 mg/dL (2.5-4.9)
[2017-08-10 08:00] VITALS: BP 122/48
[2017-08-10] MEDS: MIDODRINE HCL 5MG TABLET PO SCH ×3 (09:00→17:00)
[2017-08-10] MEDS ORDERED: DESMOPRESSIN ACETATE 4MCG/ML AMP IV ONE (09:30)
[2017-08-10] MEDS: ONDANSETRON HCL 4MG/2ML VIAL IV PRN (09:35)
[2017-08-10] MEDS ORDERED: DESMOPRESSIN ACETATE 32 MCG in SODIUM CHLORIDE 0.9% 50 ML IV NR ×2 (11:30→21:00)
[2017-08-10 12:00] VITALS: BP 116/35
[2017-08-10 16:00] VITALS: BP 121/49
[2017-08-10 20:00] VITALS: BP 113/37
[2017-08-10] MEDS: EPOETIN ALFA 10000UNITS/ML VIAL SUBCUT SCH (20:27)
[2017-08-11] VITALS: BP 120/98
[2017-08-11 04:00] VITALS: BP 112/45
[2017-08-11] MEDS: INSULIN LISPRO 100 UNITS/ML SUBCUT SCH ×4 (07:10→20:52)
[2017-08-11] MEDS: BLOOD SUGAR DIAGNOSTIC STRIP TEST SCH ×4 (07:10→20:53)
[2017-08-11 08:00] VITALS: BP 107/36
[2017-08-11 09:42] LABS: BASOPHILS % 0.7 % (0.0-2.0); HEMOGLOBIN. 9.3 g/dL (12.0-16.0); LYMPHOCYTES % 28.9 % (20.0-50.0); MEAN CORPUSCULAR HEMOGLOBIN 29.1 pg (28.0-32.0); MEAN CORPUSCULAR VOLUME 93.6 fL (81.0-99.0); MEAN PLATELET VOLUME 7.4 fl (7.4-10.4); MONOCYTES % 9.1 % (2.0-8.0); NEUTROPHILS % 59.3 % (40.0-76.0); PLATELET 253 x1000/uL (130-400); RED BLOOD CELL COUNT 3.21 mill/uL (4.2-5.4); RED CELL DISTRIBUTION WIDTH 15.9 % (11.6-14.6)
[2017-08-11] MEDS: MIDODRINE HCL 5MG TABLET PO SCH ×3 (10:12→17:00)
[2017-08-11 12:00] VITALS: BP 108/61
[2017-08-11 16:00] VITALS: BP 109/37
[2017-08-11 20:00] VITALS: BP 108/34
[2017-08-11] MEDS ORDERED: MIDODRINE HCL 5MG TABLET PO NR (21:30)
[2017-08-12] VITALS: BP 101/24
[2017-08-12 04:00] VITALS: BP 126/31
[2017-08-12 07:30] LABS: HEMATOCRIT. 28.6 % (36.0-48.0); HEMOGLOBIN. 9.1 g/dL (12.0-16.0); MEAN CORPUSCULAR HEMOGLOBIN 29.3 pg (28.0-32.0); MEAN CORPUSCULAR VOLUME 91.9 fL (81.0-99.0); MEAN PLATELET VOLUME 6.6 fl (7.4-10.4); PLATELET 262 x1000/uL (130-400); RED BLOOD CELL COUNT 3.11 mill/uL (4.2-5.4); RED CELL DISTRIBUTION WIDTH 15.6 % (11.6-14.6)
[2017-08-12] MEDS: INSULIN LISPRO 100 UNITS/ML SUBCUT SCH ×4 (07:50→21:27)
[2017-08-12 08:00] VITALS: BP 133/47
[2017-08-12] MEDS: MIDODRINE HCL 5MG TABLET PO SCH ×3 (09:43→16:56)
[2017-08-12 12:00] VITALS: BP 129/94
[2017-08-12] MEDS: BLOOD SUGAR DIAGNOSTIC STRIP TEST SCH ×3 (12:20→20:27)
[2017-08-12 16:00] VITALS: BP 106/30
[2017-08-12 20:13] LABS: PLATELET ESTIMATE NORMAL
[2017-08-12] MEDS: EPOETIN ALFA 10000UNITS/ML VIAL SUBCUT SCH (20:26)
[2017-08-13] VITALS (7 sets, daily range): BP systolic 104–131; BP diastolic 24–36
[2017-08-13] MEDS: BLOOD SUGAR DIAGNOSTIC STRIP TEST SCH (06:47)
[2017-08-13] MEDS: INSULIN LISPRO 100 UNITS/ML SUBCUT SCH (07:50)
[2017-08-13] MEDS: MIDODRINE HCL 5MG TABLET PO SCH ×3 (11:00→18:00)
[2017-08-13 18:03] LABS: HEPATITIS B SURFACE ANTIGEN NEGATIVE
[2017-08-13 18:31] LABS: HEPATITIS B CORE AB IGM NEGATIVE
[2017-08-13 18:49] LABS: HEPATITIS A AB IGM NEGATIVE (NEGATIVE)
[2017-08-14] VITALS: BP 128/32
[2017-08-14 04:00] VITALS: BP 116/39
[2017-08-14 05:47] LABS: BASOPHILS % 0.3 % (0.0-2.0); EOSINOPHILS % 1.3 % (0.0-5.0); HEMATOCRIT. 26.8 % (36.0-48.0); HEMOGLOBIN. 8.8 g/dL (12.0-16.0); LYMPHOCYTES % 27.1 % (20.0-50.0); MEAN CORPUSCULAR HEMOGLOBIN 29.6 pg (28.0-32.0); MEAN CORPUSCULAR VOLUME 90.6 fL (81.0-99.0); MEAN PLATELET VOLUME 6.5 fl (7.4-10.4); MONOCYTES % 6.7 % (2.0-8.0); NEUTROPHILS % 64.6 % (40.0-76.0); PLATELET 233 x1000/uL (130-400); RED BLOOD CELL COUNT 2.96 mill/uL (4.2-5.4); RED CELL DISTRIBUTION WIDTH 15.1 % (11.6-14.6)
[2017-08-14 08:00] VITALS: BP 128/40
[2017-08-14] MEDS: MIDODRINE HCL 5MG TABLET PO SCH ×3 (08:47→18:03)
[2017-08-14 15:26] VITALS: BP 111/60
[2017-08-14 16:00] VITALS: BP 111/60
[2017-08-14] MEDS ORDERED: SODIUM CHLORIDE 0.9% IV NR (17:00)
[2017-08-14] MEDS ORDERED: DESMOPRESSIN ACETATE IV NR (17:00)
== END 2017-08-14 20:25 | DRG 871 ==
LOC: ER 20:33 → 6EST 21:47 → ENRESERV 22:15 → 5EST 07-16 08:30 → 6WST 07-23 18:43 → 5EST 07-25 08:48 → MICUNO 07-27 16:23 → MICUSO 07-27 19:34 → 5EST 07-28 21:00 → 6EST 08-09 10:50
PROVIDERS: ADMIT Internal Medicine Nephrology; ATTEND Internal Medicine Nephrology
PROC: 02HV33Z Insertion of Infusion Device into Superior Vena Cava, Percutaneous Approach (ICD-10-PCS; 2017-07-17)
PROC: B5181ZA Fluoroscopy of Superior Vena Cava using Low Osmolar Contrast, Guidance (ICD-10-PCS; 2017-07-17)
PROC: B548ZZA Ultrasonography of Superior Vena Cava, Guidance (ICD-10-PCS; 2017-07-17)
PROC: 5A1D60Z (ICD-10-PCS; 2017-07-17)
PROC: 06PYX3Z Removal of Infusion Device from Lower Vein, External Approach (ICD-10-PCS; principal; 2017-07-27)
PROC: 30233N1 Transfusion of Nonautologous Red Blood Cells into Peripheral Vein, Percutaneous Approach (ICD-10-PCS; 2017-07-27)
PROC: B2141ZZ Fluoroscopy of Right Heart using Low Osmolar Contrast (ICD-10-PCS; 2017-07-29)
PROC: 02H633Z Insertion of Infusion Device into Right Atrium, Percutaneous Approach (ICD-10-PCS; 2017-07-29)
PROC: B244ZZZ Ultrasonography of Right Heart (ICD-10-PCS; 2017-07-29)
PROC: 02PAX3Z Removal of Infusion Device from Heart, External Approach (ICD-10-PCS; 2017-08-06)
PROC: 02HV33Z Insertion of Infusion Device into Superior Vena Cava, Percutaneous Approach (ICD-10-PCS; 2017-08-06)
PROC: B5181ZA Fluoroscopy of Superior Vena Cava using Low Osmolar Contrast, Guidance (ICD-10-PCS; 2017-08-06)
DX: A41.53 Sepsis due to Serratia (principal); G93.40 Encephalopathy, unspecified; I13.2 Hypertensive heart and chronic kidney disease with heart failure and with stage 5 chronic kidney disease, or end stage renal disease; N18.6 End stage renal disease; E11.22 Type 2 diabetes mellitus with diabetic chronic kidney disease; D69.6 Thrombocytopenia, unspecified; E11.40 Type 2 diabetes mellitus with diabetic neuropathy, unspecified; Z68.41 Body mass index [BMI] 40.0-44.9, adult; I95.9 Hypotension, unspecified; E11.649 Type 2 diabetes mellitus with hypoglycemia without coma; I50.9 Heart failure, unspecified; E66.01 Morbid (severe) obesity due to excess calories; E78.5 Hyperlipidemia, unspecified; D64.9 Anemia, unspecified; Y84.8 Other medical procedures as the cause of abnormal reaction of the patient, or of later complication, without mention of misadventure at the time of the procedure; Z16.11 Resistance to penicillins; Z59.0 Homelessness; Z88.8 Allergy status to other drugs, medicaments and biological substances; Z74.01 Bed confinement status; Z99.2 Dependence on renal dialysis
CPT/HCPCS: 36415; 36558; 36569; 36589; 70450; 76937; 77001; 80048; 80051; 80053; 80061; 80202; 82270; 82962; 84100; 84443; 84484; 85014; 85018; 85025; 85610; 85730; 86705; 86709; 86803; 86850; 86900; 86920; 87040; 87070; 87077; 87186; 87340; 90732; 93005; 93970; 95816; 97110; 97116; 97163; 97164; 97530; 99285; A6261; C1725; C1750; C1769; J0690; J0696; J0885; J1580; J1642; J1644; J1650; J1815; J2250; J2405; J2543; J2597; J2785; J2997; J3010; J3370; J3490; J7030; J7040; J7050; J7060; P9016; P9047